=== PATIENT | female | born 1985 | race Two or more races ===

== ENCOUNTER 2018-03-12 12:50 | Emergency (ER) | payer MEDICAID, OTHER ==
[~2018-03-12] VITALS: Ht 165.1 cm; Wt 78.0 kg
[2018-03-12 13:18] VITALS: BP 117/84
[2018-03-12 13:53] LABS: Urine Bacteria FEW /hpf (None Seen); Urine Blood Negative /uL (Negative); Urine Specific Gravity 1.023 (1.001-1.035); Urine WBC 15 /hpf (0 - 5)
[2018-03-12] MEDS ORDERED: cefTRIAXone SOD 1,000 MG VL IM ONE (15:30)
== END 2018-03-12 16:20 | disposition home or self-care (01) ==
LOC: ER 12:52
DX: N39.0 Urinary tract infection, site not specified (principal); M25.522 Pain in left elbow; J45.909 Unspecified asthma, uncomplicated; E11.9 Type 2 diabetes mellitus without complications; Z88.8 Allergy status to other drugs, medicaments and biological substances
CPT/HCPCS: 73080; 74176; 81001; 81025; 82962; 96372; 99285; J0696

== ENCOUNTER 2018-03-18 09:00 | Emergency (ER) | payer MEDICAID ==
[~2018-03-18] VITALS: Ht 165.1 cm; Wt 78.0 kg
[2018-03-18 09:14] VITALS: BP 100/64
[2018-03-18] MEDS ORDERED: cefTRIAXone SOD 1,000 MG VL IM ONE (10:45)
[2018-03-18 11:03] LABS: Urine Bacteria NONE SEEN /hpf (None Seen); Urine Blood 3+ /uL (Negative); Urine Mucus FEW (None Seen); Urine Specific Gravity 1.019 (1.001-1.035); Urine WBC 2 /hpf (0 - 5)
== END 2018-03-18 11:06 | disposition home or self-care (01) ==
LOC: ER 09:00
DX: N39.0 Urinary tract infection, site not specified (principal); J45.909 Unspecified asthma, uncomplicated; E10.9 Type 1 diabetes mellitus without complications; Z88.8 Allergy status to other drugs, medicaments and biological substances
CPT/HCPCS: 81001; 87086; 96372; 99284; J0696